=== PATIENT | male | born 1985 | race Caucasian/White ===

== ENCOUNTER 2016-11-03 18:10 | Emergency (ER) | payer OTHER | END 2016-11-03 20:05 | disposition home or self-care (01) | LOC: D.ER 18:10 | DX: K02.9 Dental caries, unspecified (principal); K08.89 Other specified disorders of teeth and supporting structures; F17.200 Nicotine dependence, unspecified, uncomplicated ==

== ENCOUNTER 2018-01-28 09:20 | Inpatient (IN) | payer OTHER ==
[~2018-01-28] VITALS: Ht 170.2 cm; Wt 78.6 kg
[2018-01-28 12:21] LABS: BASOPHILS 0.5 % (0-2); EOSINOPHILS 1.5 % (0-7); HEMATOCRIT 43.9 % (42.0-54.0); HEMOGLOBIN 15.1 g/dL (13.5-17.5); IMMATURE GRANULOCYTES 0.2 % (0-5); LYMPHOCYTES 33.1 % (15-50); MCH 29.9 pg (26.0-34.0); MCHC 34.4 g/dL (31.0-37.0); MCV 86.9 fL (80.0-100.0); MEAN PLATELET VOLUME 11.3 fL (7.4-10.4); MONOCYTES 5.8 % (2-11); NEUTROPHILS 58.9 % (40-80); PLATELET COUNT 236 10x3/uL (130-400); RBC 5.05 10x6/uL (4.20-6.10); RDW 12.5 % (11.5-14.5); WBC 6.5 10x3/uL (4.8-10.8)
[2018-01-28 12:48] LABS: ALBUMIN 3.7 g/dL (3.4-5.0); ALKALINE PHOSPHATASE 52 U/L (46-116); ALT (SGPT) 29 U/L (10-68); BILIRUBIN - TOTAL 0.35 mg/dL (0.2-1.3); CALC OSMOLALITY 280 mosm/kg (275-300); CARBON DIOXIDE 26.9 mmol/L (21.0-32.0); CHLORIDE - SERUM 103 mmol/L (98-107); GLUCOSE 146 mg/dL (74-106); POTASSIUM - SERUM 3.9 mmol/L (3.5-5.1); PROTEIN - SERUM 7.6 g/dL (6.4-8.2); SODIUM 140 mmol/L (136-145); UREA NITROGEN 11 mg/dL (7-18); eGFR NON AFRICAN AMERICAN > 90 mL/min (90-120)
[2018-01-29 03:50] VITALS: BP 127/85
[2018-01-29 03:54] VITALS: BP 127/85
[2018-01-29 07:48] LABS: BASOPHILS 0.1 % (0-2); EOSINOPHILS 1.8 % (0-7); HEMATOCRIT 43.1 % (42.0-54.0); HEMOGLOBIN 14.6 g/dL (13.5-17.5); IMMATURE GRANULOCYTES 0.1 % (0-5); LYMPHOCYTES 22.7 % (15-50); MCH 29.6 pg (26.0-34.0); MCHC 33.9 g/dL (31.0-37.0); MCV 87.2 fL (80.0-100.0); MEAN PLATELET VOLUME 10.9 fL (7.4-10.4); MONOCYTES 9.7 % (2-11); NEUTROPHILS 65.6 % (40-80); RBC 4.94 10x6/uL (4.20-6.10); RDW 12.3 % (11.5-14.5)
[2018-01-29 07:50] LABS: PLATELET COUNT 177 10x3/uL (130-400); WBC 8.6 10x3/uL (4.8-10.8)
[2018-01-29 07:53] VITALS: BMI 27.1
[2018-01-29 08:01] LABS: CALCIUM 8.4 mg/dL (8.5-10.1); CARBON DIOXIDE 26.4 mmol/L (21.0-32.0); CHLORIDE - SERUM 101 mmol/L (98-107); POTASSIUM - SERUM 3.7 mmol/L (3.5-5.1); SODIUM 139 mmol/L (136-145); UREA NITROGEN 12 mg/dL (7-18)
[2018-01-29 08:03] LABS: CALC OSMOLALITY 277 mosm/kg (275-300); CREATININE - SERUM 0.7 mg/dL (0.6-1.3); GLUCOSE 92 mg/dL (74-106); eGFR NON AFRICAN AMERICAN > 90 mL/min (90-120)
[2018-01-29 09:29] LABS: INR 1.13 (0.85-1.17)
[2018-01-29 10:38] VITALS: Ht 170.2 cm; Wt 78.6 kg
[2018-01-29 20:00] VITALS: BP 150/96
[2018-01-30 06:17] VITALS: BP 113/90
[2018-01-30 07:59] VITALS: BP 121/81
[2018-01-30 15:51] VITALS: BP 112/70
[2018-01-30 19:58] VITALS: BP 132/88
[2018-01-31 02:00] VITALS: BP 134/84
[2018-01-31 03:56] VITALS: BP 106/53
[2018-01-31 08:32] VITALS: BP 112/70
[2018-01-31] MEDS ORDERED: PERCOCET 10/3251 TA1 PO (08:49)
[2018-01-31] MEDS ORDERED: BAYER CHEWABLE81 MG PO (08:49)
== END 2018-01-31 10:15 | disposition home or self-care (01) | DRG 563 ==
LOC: D.ER 09:20 → D.MS 14:44 → D.EDHOLD 14:44 → D.MS 01-29 14:25
PROVIDERS: Family Medicine; Physician Assistant
DX: S92.002A Unspecified fracture of left calcaneus, initial encounter for closed fracture (principal); S92.001A Unspecified fracture of right calcaneus, initial encounter for closed fracture; W13.2XXA Fall from, out of or through roof, initial encounter; F17.200 Nicotine dependence, unspecified, uncomplicated

== ENCOUNTER 2018-03-05 19:40 | Emergency (ER) | payer OTHER ==
[~2018-03-05] VITALS: Ht 170.2 cm; Wt 77.3 kg
[~2018-03-05 19:40] MED LIST: BAYER CHEWABLE81 MG PO; PERCOCET 10/3251 TA1 PO
[2018-03-05 20:13] VITALS: Ht 170.2 cm; Wt 77.3 kg
== END 2018-03-05 21:50 | disposition left against medical advice (07) ==
LOC: D.ER 19:40
DX: R22.31 Localized swelling, mass and lump, right upper limb (principal)